=== PATIENT | male | born 1995 | race Caucasian/White ===

== ENCOUNTER 2024-10-16 19:05 | Emergency (ER) | payer OTHER ==
[~2024-10-16] VITALS: Ht 180.3 cm; Wt 89.8 kg
[2024-10-16 19:07] VITALS: TEMP 37.1; O2SAT 100
[2024-10-16] MEDS ORDERED: IBUP-2029 MT (21:01)
[2024-10-16] MEDS: IBUPROFEN 800MG TABLET PO ONE (21:08)
[2024-10-16 21:10] VITALS: BP 120/81; PULSE 74; RESP 18; O2SAT 97
== END 2024-10-16 21:12 | disposition home or self-care (01) ==
LOC: ER 19:05
DX: S09.90XA Unspecified injury of head, initial encounter (principal); M54.2 Cervicalgia; M54.9 Dorsalgia, unspecified; V43.52XA Car driver injured in collision with other type car in traffic accident, initial encounter; X58.XXXA Exposure to other specified factors, initial encounter; Y93.89 Activity, other specified; Y92.410 Unspecified street and highway as the place of occurrence of the external cause; Y99.8 Other external cause status
CPT/HCPCS: 99282